=== PATIENT | female | born 1935 | race Caucasian/White ===

== ENCOUNTER → 2018-02-06 | Outpatient (CLI) | payer MEDICARE, OTHER ==
[~2018-02-06] MED LIST: ADALAT CC30 MG; ASPIRIN EC81 M1; B COMPLEX-VITA1 EACH PO; BIOFLEX TABLET1 EACH; CARVEDILOL3.125 MG; FLEXERIL; FOSAMAX 10 MG10 MG; LESCOL XL80 MG; MAGNESIUM GLUC250 MG PO; MOBIC7.5 MG; MULTIVITAMINS; NEXIUM40 MG; OCCUVITE; POTASSIUM GLUCONATE; VITAMIN C + RO500 MG PO; VITAMIN D400 UNI1 PO; VITAMIN E400 UNIT PO
== END ==
LOC: M.RAD 14:49
DX: Z12.31 Encounter for screening mammogram for malignant neoplasm of breast (principal)

== ENCOUNTER → 2019-04-17 | Outpatient (CLI) | payer OTHER | LOC: M.RAD 14:05 | DX: Z12.31 Encounter for screening mammogram for malignant neoplasm of breast (principal) ==

== ENCOUNTER → 2020-04-13 | Outpatient (CLI) | payer OTHER | LOC: M.RAD 14:03 | PROVIDERS: ATTEND Family Medicine | DX: Z12.31 Encounter for screening mammogram for malignant neoplasm of breast (principal); C50.912 Malignant neoplasm of unspecified site of left female breast; N64.89 Other specified disorders of breast ==

== ENCOUNTER → 2021-04-07 | Outpatient (CLI) | payer OTHER | LOC: M.RAD 10:21 | PROVIDERS: ATTEND Family Medicine | DX: Z12.31 Encounter for screening mammogram for malignant neoplasm of breast (principal) ==

== ENCOUNTER 2021-05-10 19:42 | Emergency (ER) | payer BC ==
[~2021-05-10] VITALS: Ht 172.7 cm; Wt 74.8 kg
[2021-05-10] MEDS ORDERED: LEVOTHYROXINE137 MC1 PO (20:07)
[2021-05-10 21:35] LABS: ABSOLUTE BASOPHILS 0.1 thou/uL (0.0-0.2); ABSOLUTE EOSINOPHILS 0.2 thou/uL (0.0-0.7); ABSOLUTE LYMPHOCYTES 1.3 thou/uL (0.8-5.3); ABSOLUTE MONOCYTES 0.5 thou/uL (0.0-1.2); ABSOLUTE NEUTROPHILS 3.5 thou/uL (1.6-8.1); BASOPHILS 1.1 %; EOSINOPHILS 2.9 %; HEMATOCRIT 42.6 % (37.0-47.0); HEMOGLOBIN 14.2 gm/dL (12.0-15.0); LYMPHOCYTES 23.3 %; MCH 32.2 pg (26.0-34.0); MCHC 33.4 g/dL (28.0-37.0); MCV 96.4 fL (80.0-100.0); MONOCYTES 8.5 %; NUCLEATED RBCS 0 /100WBC; PLATELET COUNT* 261 thou/uL (150-400); POLYS 64.2 %; RBC 4.42 mil/uL (4.20-5.00); RDW-CV 13.1 % (10.5-14.5); WBC 5.5 thou/uL (4.0-11.0)
[2021-05-10 21:42] LABS: CALCIUM 8.3 mg/dL (8.5-10.1); POTASSIUM 3.8 mmol/L (3.5-5.1)
[2021-05-10 21:52] LABS: ALBUMIN 3.8 g/dL (3.4-5.0); MAGNESIUM 2.1 mg/dL (1.8-2.4); TOTAL BILIRUBIN 0.3 mg/dL (<0.1-1.0); TOTAL PROTEIN 7.5 g/dL (6.4-8.2)
[2021-05-10] MEDS ORDERED: ATIVAN0.5 M1 PO (23:16)
[2021-05-11 00:40] VITALS: BP 123/65
--- NOTE | 2021-05-11 11:04 | EKG ---
[place] [address] ELECTROCARDIOGRAM REPORT Name: WAYNE JONES Room: [facility]#: [id number] Admission: 05/10/21 Attend Phys: Discharge: 05/11/21 Date of : 37 Date of Service: 05/10/212011 Report #: [id number] THIS REPORT FOR: //name// [facility] ED Test Date: 2021-05-10 Test Time: 20:12:12 Pat Name: WAYNE JONES Department: Room: Gender: Divorce Mediator: [place] : 1935 Requested By: Jeison Romano Order Number: [id number] MD: Niles Schaeffer Measurements Intervals [place] Rate: 88 P: 55 [place]: 167 QRS: -2 QRSD: 82 T: 31 QT: 368 QTc: 446 Interpretive Statements Sinus rhythm Low voltage, precordial leads Compared to ECG 01/30/2016 12:59:05 Low QRS voltage now present Electronically Signed On 05-11-2021 11:04:35 [employer] SERV[employer] TECHNICIAN by Niles Schaeffer [email or web address] <ELECTRONICALLY SIGNED> By: Niles Schaeffer MD, [facility] 05/11/21 1104 11 11 Niles Schaeffer MD, [facility] /EPI
== END 2021-05-11 00:40 | disposition home or self-care (01) ==
LOC: M.ERS 19:42
PROVIDERS: Emergency Medicine Emergency Medical Services
DX: R00.2 Palpitations (principal); F41.9 Anxiety disorder, unspecified; Z90.89 Acquired absence of other organs; Z98.51 Tubal ligation status; Z98.890 Other specified postprocedural states; Z90.12 Acquired absence of left breast and nipple; Z87.442 Personal history of urinary calculi; Z90.49 Acquired absence of other specified parts of digestive tract; Z79.82 Long term (current) use of aspirin; Z79.899 Other long term (current) drug therapy; Z79.891 Long term (current) use of opiate analgesic; Z79.1 Long term (current) use of non-steroidal anti-inflammatories (NSAID); Z88.2 Allergy status to sulfonamides; Z88.8 Allergy status to other drugs, medicaments and biological substances